=== PATIENT | female | born 1990 | race American Indian/Alaskan Native ===

== ENCOUNTER 2020-03-25 13:47 | Emergency (ER) | payer BC ==
[2020-03-25 14:15] LABS: Bilirubin,Urine NEG (Negative); Blood,Urine LG (Negative); Color,Urine Yellow (Yellow); Mucus,Urine FEW /HPF; Protein,Urine <15 mg/dL mg/dL (Negative); Urobilinogen,Urine < 2.0 mg/dL (<2.0)
[2020-03-25 14:18] LABS: RBC,Urine > 182.0 /HPF (0.0-6.0)
[2020-03-25 14:28] LABS: Basophils % (Auto) 1.1 % (0.0-1.8); Eosinophils # (Auto) 0.1 K/mm3 (0.0-0.4); Eosinophils % (Auto) 1.6 % (0.0-4.3); Hemoglobin 12.7 gm/dl (10.1-14.3); Lymphocytes # (Auto) 1.2 K/mm3 (1.2-5.4); Lymphocytes % (Auto) 30.7 % (13.4-35.0); Mean Corpuscular HGB Conc 34 % (30-34); Mean Corpuscular Volume 81 fl (79-97); Monocytes # (Auto) 0.3 K/mm3 (0.0-0.8); Monocytes % (Auto) 7.4 % (0.0-7.3); Platelet Count 251 K/mm3 (140-440); Red Blood Count 4.71 M/mm3 (3.65-5.03); Red Cell Distribution Width 15.7 % (13.2-15.2)
--- NOTE | 2020-03-25 14:34 | Event Note ---
ED Screening Note Date of service: 03/25/20 Time: 14:33 ED Screening Note: , vaginal bleeding, no care. LMP 02/17/2020 This initial assessment/diagnostic orders/clinical plan/treatment(s) is/are subject to change based on patients health status, clinical progression and re-assessment by fellow clinical providers in the ED. Further treatment and workup at subsequent clinical providers discretion. Patient/guardian urged not to elope from the ED as their condition may be serious if not clinically assessed and managed. Initial orders include: CBC, BMP, rh, HCG quant, transvaginal ultrasound
[2020-03-25 14:43] LABS: Alanine Aminotransferase 12 units/L (7-56); Albumin 4.4 g/dL (3.9-5); Blood Urea Nitrogen 7 mg/dL (7-17); Hemolysis Index 6
[2020-03-25 14:53] LABS: BUN/Creatinine Ratio 14
--- NOTE | 2020-03-25 16:54 | Ultrasound Report ---
ULTRASOUND OBSTETRIC INDICATION / CLINICAL INFORMATION: vaginal bleeding and pain. TECHNIQUE: Transabdominal-transvaginal. COMPARISON: None available. FINDINGS: Uterus: No evidence of an intrauterine . Multiple uterine fibroids are present. Endometrium measures 1 cm Adnexa: No significant abnormality except for a 3.7 cm left ovarian cyst. Free fluid: None. Additional FINDINGS: None. IMPRESSION: 1. No convincing evidence of an intrauterine or extrauterine . Recommend clinical correlatio n Signer Name: Monty Murray MD Signed: 03/25/2020 4:49 PM Workstation Name: [id number]
--- NOTE | 2020-03-25 17:28 | Emergency Department Report ---
ED Female HPI - General Chief complaint: Vaginal Bleeding Stated complaint: VAG BLEEDING Source: patient Mode of arrival: Ambulatory Limitations: No Limitations - History of Present Illness Initial comments: This is a pleasant 30-year-old female presents the emergency department chief complaint of vaginal bleeding and a positive test. Patient states her last menstrual cycle was 1017. She took a test 1 week ago and it was positive. Started having some heavier vaginal bleeding over the past 2 3 days. She reports some mild lower abdominal cramping. Denies any associated fever, chills, night sweats, headache, dizziness, blurry vision, nausea, vomit, diarrhea, chest pain, shortness of breath or any other associated symptoms. - Related Data Previous Rx's Medication Instructions Recorded Last Taken Type HYDROcodone/APAP 5-325 [Vale 1 each PO Q6HR PRN #10 tablet 12/15/15 Unknown Rx 5/325] Allergies Allergy/AdvReac Type Severity Reaction Status Date / Time No Known Allergies Allergy Unverified 12/15/15 17:10 ED Review of Systems ROS: Stated complaint: VAG BLEEDING Other details as noted in HPI Comment: All other systems reviewed and negative Constitutional: denies: chills, fever Eyes: denies: eye pain, eye discharge, vision change ENT: denies: ear pain, throat pain Respiratory: denies: cough, shortness of breath, wheezing Cardiovascular: denies: chest pain, palpitations Endocrine: no symptoms reported Gastrointestinal: abdominal pain. denies: nausea, diarrhea Genitourinary: abnormal menses. denies: urgency, dysuria, discharge Musculoskeletal: denies: back pain, joint swelling, arthralgia Skin: denies: rash, lesions Neurological: denies: headache, weakness, paresthesias Psychiatric: denies: anxiety, depression Hematological/Lymphatic: denies: easy bleeding, easy bruising ED Past Medical Hx - Past Medical History Previous Medical History?: No - Surgical History Past Surgical History?: No - Social History Smoking Status: Never Smoker Substance Use Type: None - Medications Home Medications: Home Medications Medication Instructions Recorded Confirmed Last Taken Type HYDROcodone/APAP 5-325 [Vale 1 each PO Q6HR PRN #10 tablet 12/15/15 Unknown Rx 5/325] ED Physical Exam - General Limitations: No Limitations General appearance: alert, in no apparent distress - Head Head exam: Present: atraumatic, normocephalic - Eye Eye exam: Present: normal appearance, PERRL, EOMI Pupils: Present: normal accommodation - ENT ENT exam: Present: normal exam, normal orophraynx, mucous membranes moist - Neck Neck exam: Present: normal inspection, full ROM. Absent: tenderness, meningismus - Respiratory Respiratory exam: Present: normal lung sounds bilaterally. Absent: respiratory distress, wheezes, rales, rhonchi, stridor - Cardiovascular Cardiovascular Exam: Present: regular rate, normal rhythm, normal heart sounds. Absent: systolic murmur, diastolic murmur, rubs, gallop - GI/Abdominal GI/Abdominal exam: Present: soft, normal bowel sounds. Absent: distended, tenderness, guarding, rebound, rigid - Extremities Exam Extremities exam: Present: normal inspection, full ROM, normal capillary refill. Absent: tenderness - Back Exam Back exam: Present: normal inspection, full ROM. Absent: tenderness, CVA tenderness (R), CVA tenderness (L) - Neurological Exam Neurological exam: Present: alert, oriented X3, normal gait - Psychiatric Psychiatric exam: Present: normal affect, normal mood - Skin Skin exam: Present: warm, dry, intact, normal color. Absent: rash ED Medical Decision Making - Lab Data Result diagrams: 03/25/20 14:05 03/25/20 14:05 Lab Results 03/25/20 03/25/20 03/25/20 Range/Units 14:04 14:05 14:05 WBC 4.0 L (4.5-11.0) K/mm3 RBC 4.71 (3.65-5.03) M/mm3 Hgb 12.7 (10.1-14.3) gm/dl Hct 38.0 (30.3-42.9) % MCV 81 (79-97) fl MCH 27 L (28-32) pg MCHC 34 (30-34) % RDW 15.7 H (13.2-15.2) % Plt Count 251 (140-440) K/mm3 Lymph % (Auto) 30.7 (13.4-35.0) % Mercer % (Auto) 7.4 H (0.0-7.3) % Eos % (Auto) 1.6 (0.0-4.3) % Baso % (Auto) 1.1 (0.0-1.8) % Lymph # (Auto) 1.2 (1.2-5.4) K/mm3 Mercer # (Auto) 0.3 (0.0-0.8) K/mm3 Eos # (Auto) 0.1 (0.0-0.4) K/mm3 Baso # (Auto) 0.0 (0.0-0.1) K/mm3 Seg Neutrophils % 59.2 (40.0-70.0) % Seg Neutrophils # 2.4 (1.8-7.7) K/mm3 Sodium 138 (137-145) mmol/L Potassium 3.8 (3.6-5.0) mmol/L Chloride 101.2 (98-107) mmol/L Carbon Dioxide 27 (22-30) mmol/L Anion Gap 14 mmol/L BUN 7 (7-17) mg/dL Creatinine 0.5 L (0.6-1.2) mg/dL Estimated GFR > 60 ml/min BUN/Creatinine Ratio 14 % Glucose 90 (65-100) mg/dL Calcium 9.0 (8.4-10.2) mg/dL Total Bilirubin 0.30 (0.1-1.2) mg/dL AST 11 (5-40) units/L ALT 12 (7-56) units/L Alkaline Phosphatase 82 (35-129) units/L Total Protein 7.9 (6.3-8.2) g/dL Albumin 4.4 (3.9-5) g/dL Albumin/Globulin Ratio 1.3 % HCG, Quant (0-4) mIU/mL Urine Color Yellow (Yellow) Urine Turbidity Clear (Clear) Urine pH 8.0 H (5.0-7.0) Ur Specific [place] 1.021 (1.003-1.030) Urine Protein <15 mg/dl (Negative) mg/dL Urine Glucose (UA) Neg (Negative) mg/dL Urine Ketones Neg (Negative) mg/dL Urine Blood Lg (Negative) Urine Nitrite Neg (Negative) Urine Bilirubin Neg (Negative) Urine Urobilinogen < 2.0 (<2.0) mg/dL Ur Leukocyte Esterase Tr (Negative) Urine WBC (Auto) 7.0 H (0.0-6.0) /HPF Urine RBC (Auto) > 182.0 (0.0-6.0) /HPF U Epithel Cells (Auto) 9.0 (0-13.0) /HPF Urine Mucus Few /HPF Blood Type 03/25/20 03/25/20 Range/Units 14:05 Unknown WBC (4.5-11.0) K/mm3 RBC (3.65-5.03) M/mm3 Hgb (10.1-14.3) gm/dl Hct (30.3-42.9) % MCV (79-97) fl MCH (28-32) pg MCHC (30-34) % RDW (13.2-15.2) % Plt Count (140-440) K/mm3 Lymph % (Auto) (13.4-35.0) % Mercer % (Auto) (0.0-7.3) % Eos % (Auto) (0.0-4.3) % Baso % (Auto) (0.0-1.8) % Lymph # (Auto) (1.2-5.4) K/mm3 Mercer # (Auto) (0.0-0.8) K/mm3 Eos # (Auto) (0.0-0.4) K/mm3 Baso # (Auto) (0.0-0.1) K/mm3 Seg Neutrophils % (40.0-70.0) % Seg Neutrophils # (1.8-7.7) K/mm3 Sodium (137-145) mmol/L Potassium (3.6-5.0) mmol/L Chloride (98-107) mmol/L Carbon Dioxide (22-30) mmol/L Anion Gap mmol/L BUN (7-17) mg/dL Creatinine (0.6-1.2) mg/dL Estimated GFR ml/min BUN/Creatinine Ratio % Glucose (65-100) mg/dL Calcium (8.4-10.2) mg/dL Total Bilirubin (0.1-1.2) mg/dL AST (5-40) units/L ALT (7-56) units/L Alkaline Phosphatase (35-129) units/L Total Protein (6.3-8.2) g/dL Albumin (3.9-5) g/dL Albumin/Globulin Ratio % HCG, Quant 227.5 H (0-4) mIU/mL Urine Color (Yellow) Urine Turbidity (Clear) Urine pH (5.0-7.0) Ur Specific [place] (1.003-1.030) Urine Protein (Negative) mg/dL Urine Glucose (UA) (Negative) mg/dL Urine Ketones (Negative) mg/dL Urine Blood (Negative) Urine Nitrite (Negative) Urine Bilirubin (Negative) Urine Urobilinogen (<2.0) mg/dL Ur Leukocyte Esterase (Negative) Urine WBC (Auto) (0.0-6.0) /HPF Urine RBC (Auto) (0.0-6.0) /HPF U Epithel Cells (Auto) (0-13.0) /HPF Urine Mucus /HPF Blood Type B POSITIVE - Radiology Data Radiology results: report reviewed, image reviewed Ultrasound Report Signed Patient: DANIEL MUELLER MR# : [id number] : 1990 Acct:[id number] Age/Sex: 30 / F ADM Date: 03/25/20 Loc: ED Attending Dr: Ordering Physician: KARAN MACK Date of Service: 03/25/20 Procedure(s): US OB transvaginal Accession Number(s): [id number] cc: KARAN MACK ULTRASOUND OBSTETRIC INDICATION / CLINICAL INFORMATION: vaginal bleeding and pain. TECHNIQUE: Transabdominal-transvaginal. COMPARISON: None available. FINDINGS: Uterus: No evidence of an intrauterine . Multiple uterine fibroids are present. Endometrium measures 1 cm Adnexa: No significant abnormality except for a 3.7 cm left ovarian cyst. Free fluid: None. Additional FINDINGS: None. IMPRESSION: 1. No convincing evidence of an intrauterine or extrauterine . Recommend clinical correlation Signer Name: Monty Murray MD Signed: 03/25/2020 4:49 PM Workstation Name: [id number] Transcribed By: Dictated By: Monty Murray MD Electronically Authenticated By: Monty Murray MD Signed Date/Time: 03/25/20 7270 - Medical Decision Making Patient nontoxic in no acute distress. Vital signs stable. test was a low with an hCG of 227. Ultrasound course at that level did not show anything but no signs of an ectopic. Patient is hemodynamically stable. She was educated on signs symptoms of return precautions including heavy bleeding greater than 1 pad an hour, dizziness, syncope, severe abdominal pain to return to the emerge part immediately. She was given outpatient [facility] follow-up which she has Dr. Morel and I recommend she call first thing in the morning for 72- hour follow-up. She declined pelvic exam this time. She verbalized understanding the diagnosis, treatment plan and follow-up instructions and all of her questions were answered. - Differential Diagnosis Threatened miscarriage, ectopic , complete Critical care attestation.: If time is entered above; I have spent that time in minutes in the direct care of this critically ill patient, excluding procedure time. ED Disposition Clinical Impression: Threatened miscarriage Disposition: DC- TO HOME OR SELFCARE Is pt being admited?: No Condition: Stable Instructions: Threatened Miscarriage, [id number] Referrals: PRIMARY CARE, [Primary Care Provider] - 2-3 Days [facility] [Provider Group] - 2-3 Days Forms: Work/School Release Form(ED) Time of Disposition: 17:27
== END 2020-03-25 17:41 | disposition home or self-care (01) ==
LOC: ED 13:47
DX: O20.0 Threatened abortion (principal); Z79.899 Other long term (current) drug therapy; Z3A.00 Weeks of gestation of pregnancy not specified
CPT/HCPCS: 36415; 76801; 76817; 80053; 81001; 84702; 85025; 86900; 86901

== ENCOUNTER 2020-11-01 09:57 | Outpatient (CLI) | payer BC, MEDICAID ==
[2020-11-01] MEDS ORDERED: LACTATED RINGERS 500 ML IV ONE (10:43)
[2020-11-01 10:47] VITALS: BP 126/69
[2020-11-01 11:15] LABS: Bilirubin,Urine NEG (Negative); Blood,Urine NEG (Negative); Color,Urine Yellow (Yellow); Mucus,Urine FEW /HPF; Protein,Urine <15 mg/dL mg/dL (Negative); Urobilinogen,Urine < 2.0 mg/dL (<2.0)
== END 2020-11-01 11:28 | disposition home or self-care (01) ==
LOC: TRG 09:57 → APU 10:00 → TRG 11:28
PROVIDERS: ATTEND Obstetrics & Gynecology
DX: O26.852 Spotting complicating pregnancy, second trimester (principal); O26.892 Other specified pregnancy related conditions, second trimester; R10.9 Unspecified abdominal pain; Z3A.20 20 weeks gestation of pregnancy
CPT/HCPCS: 81001

== ENCOUNTER 2021-01-10 17:27 | Outpatient (CLI) | payer BC, MEDICAID ==
[2021-01-10 18:01] VITALS: BP 128/78
[2021-01-10 18:54] LABS: Bacteria,Urine 1+ /HPF (Negative); Bilirubin,Urine NEG (Negative); Blood,Urine NEG (Negative); Color,Urine Yellow (Yellow); Mucus,Urine 3+ /HPF; Urobilinogen,Urine < 2.0 mg/dL (<2.0)
[2021-01-10] MEDS ORDERED: LACTATED RINGERS 1,000 ML IV ONE (19:41)
[2021-01-10 19:58] LABS: Basophils # (Auto) 0.2 K/mm3 (0.0-0.1); Basophils % (Auto) 2.9 % (0.0-1.8); Eosinophils # (Auto) 0.1 K/mm3 (0.0-0.4); Eosinophils % (Auto) 1.9 % (0.0-4.3); Hematocrit 35.1 % (30.3-42.9); Hemoglobin 12.2 gm/dl (10.1-14.3); Lymphocytes # (Auto) 0.7 K/mm3 (1.2-5.4); Mean Corpuscular HGB Conc 35 % (30-34); Mean Corpuscular Volume 90 fl (79-97); Monocytes # (Auto) 0.4 K/mm3 (0.0-0.8); Monocytes % (Auto) 5.7 % (0.0-7.3); Platelet Count 221 K/mm3 (140-440); Red Blood Count 3.92 M/mm3 (3.65-5.03); Red Cell Distribution Width 13.5 % (13.2-15.2)
[2021-01-10 20:13] LABS: Alanine Aminotransferase 20 units/L (7-56); Albumin 3.6 g/dL (3.9-5); Blood Urea Nitrogen 9 mg/dL (7-17); Calcium 8.9 mg/dL (8.4-10.2); Hemolysis Index 15
[2021-01-10 20:19] LABS: BUN/Creatinine Ratio 23
== END 2021-01-10 20:50 | disposition home or self-care (01) ==
LOC: TRG 17:27 → APU 17:31 → TRG 20:50
PROVIDERS: ATTEND Obstetrics & Gynecology
DX: Z34.93 Encounter for supervision of normal pregnancy, unspecified, third trimester (principal); Z3A.30 30 weeks gestation of pregnancy
CPT/HCPCS: 36415; 59025; 80053; 81001; 85025

== ENCOUNTER 2021-01-28 17:23 | Outpatient (CLI) | payer BC, MEDICAID ==
[2021-01-28] MEDS ORDERED: LACTATED RINGERS 1,000 ML IV ONE (18:44)
[2021-01-28 19:35] VITALS: BP 104/61
[2021-01-28] MEDS ORDERED: TERBUTALINE 1 MG/1 ML INJ SUB-Q ONE (20:00)
== END 2021-01-28 20:24 | disposition home or self-care (01) ==
LOC: TRG 17:23 → APU 17:25 → TRG 20:24
PROVIDERS: ATTEND Obstetrics & Gynecology
DX: O26.893 Other specified pregnancy related conditions, third trimester (principal); R42 Dizziness and giddiness; R51.9 Headache, unspecified; Z3A.33 33 weeks gestation of pregnancy
CPT/HCPCS: 59025; 96360; 96361; 96372; J3105; J7120

== ENCOUNTER 2021-02-15 13:38 | Outpatient (CLI) | payer BC, MEDICAID ==
[2021-02-15] MEDS ORDERED: LACTATED RINGERS 1,000 ML IV ONE (14:22)
[2021-02-15] MEDS ORDERED: ONDANSETRON 4 MG/2 ML INJ IV ONE (14:24)
[2021-02-15 15:16] LABS: Bacteria,Urine 1+ /HPF (Negative); Bilirubin,Urine NEG (Negative); Blood,Urine NEG (Negative); Color,Urine Yellow (Yellow); Mucus,Urine 1+ /HPF; Urobilinogen,Urine < 2.0 mg/dL (<2.0)
[2021-02-15] MEDS ORDERED: TERBUTALINE 1 MG/1 ML INJ SUB-Q ONE (16:45)
[2021-02-15 16:50] VITALS: BP 108/56
== END 2021-02-15 17:19 | disposition home or self-care (01) ==
LOC: TRG 13:38 → APU 13:39 → TRG 17:19
PROVIDERS: ATTEND Obstetrics & Gynecology
DX: O21.2 Late vomiting of pregnancy (principal); R42 Dizziness and giddiness; R51.9 Headache, unspecified; Z3A.36 36 weeks gestation of pregnancy
CPT/HCPCS: 59025; 81001; 96361; 96365; 96372; J2405; J3105; J7120; 96360; 96374

== ENCOUNTER 2021-03-09 10:30 | Inpatient (IN) | payer BC, MEDICAID ==
--- NOTE | 2021-03-09 12:13 | History and Physical Report ---
History of Present Illness Date of examination: 03/09/21 Date of admission: 03/09/21 Chief complaint: Previous c-sections with c/o SROM History of present illness: Pt presents c/o SROM. Pt noted to have negative swab but clinical signs of SROM with fluid coming from perineum as per triage nurse. When pt was examiend by myself I did note moisture on the perineum but no gush of fluid. However, she is having regular painful contractions w/o cervical dilation. Pt states this ahs been since she saw the fliuid come out at 7am. I d/w risk, benefits and alternatives for repeat c/s and she agrees to repeat c/s. Consents signed and placed on the chart. EDC Confirmation: 03/19/2021 Gestational Age: 38 4/7 weeks Past History : 3 Term Births: 1 Premature Births: 0 Living Children: 1 Para: 1 Mult. Births: 0 Prev : 1 Aborta: 1 Elect. Ab: 0 Spont. Ab: 1 Ectopics: 0 # 1 Delivery date: 2016 Weeks Gestation: 40 Delivery type: Delivery location: [facility] Infant Sex: Male weight: 9 Comments: SROM delivered Wednesday night, IOL for prelabor ROM, got to complete and pushed but thinks her cervix swelled; CSection # 2 Delivery date: 04/2020 Delivery type: SAB Comments: denies complications, procedures, and medications Past Medical History: Negative Past Medical History Past Surgical History: Reviewed and updated today: Hernia Repair as baby Family History Summary: Reviewed history and no changes required: 11/07/2020 General Comments - FH: DM HTN Heart dz Social History: Reviewed history from 04/03/2020 and no changes required: 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 Risk Factors: Smoked Tobacco Use: Never smoker Smokeless Tobacco Use: Never Counseled to Quit/Cut Down: yes Passive Smoke Exposure: no HIV High Risk Behavior: no 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 Dietary Counseling Reason: pn yes Past Medical History Anesthesia Complications: negative Anemia: negative Autoimmune Disorder: negative Bleeding Disorder: negative Blood Transfusions: negative Breast Disease: negative Diabetes: negative Heart Disease: negative Hypertension: negative Hepatitis/Liver Disease: negative Kidney Disease/UTI: negative Neurologic/Epilepsy/Migraines: negative Phlebitis/Varicosities: negative Psychiatric: negative Pulmonary Disease/Asthma: negative Thyroid Disease: negative Hospitalizations: negative Surgery (Non-detail technician): Hernia Repair as baby Abnormal PAP: negative WENDY Exposure: negative Infertility: negative Uterine Anomaly: negative Uterine Surgery (not C/S): negative Other Gynecologic Problems: negative 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 of genital herpes: no Partner hx. of genital herpes: no Rash, Viral, or Febrile illness since last LMP? no Varicella/Chicken Pox Status: Previous Disease TB Risk: no Genetic History Congenital Heart Defect: Mom: no Dad: no Nely Disease: Mom: no Dad: no Thalassemia Mom: no Dad: no Neural Tube Defect Mom: no Dad: no Down's Syndrome Mom: no Dad: no Ayush-Sachs Mom: no Dad: no Sickle Cell Disease/Trait Mom: no Dad: no Hemophilia Mom: no Dad: no Muscular Dystrophy Mom: no Dad: no Cystic Fibrosis Mom: no Dad: no Zohra Chorea Mom: no Dad: no Mental Retardation Mom: no Dad: no Fragile X Mom: no Dad: no Other Genetic/Chromosomal Disorder Mom: no Dad: no Child w/other defect Mom: no Dad: no Enviromental Exposures Enviromental Exposures Reviewed Xray Exposure: no Medication, drug, or alcohol use since LMP: no Chemical/Other Exposure: no Exposure to Cat Liter: no Hx of Parvovirus (Fifth Disease): no Occupational Exposure to Children: none Active Medications (reviewed today): None Current Allergies (reviewed today): No known allergies Past History - Obstetrical History Expected Date of Delivery: 03/19/21 Actual Gestation: 38 Week(s) 4 Day(s) : 3 Medications and Allergies Allergies Allergy/AdvReac Type Severity Reaction Status Date / Time No Known Allergies Allergy Verified 02/15/21 14:07 Home Medications Medication Instructions Recorded Confirmed Last Taken Type Ondansetron [Zofran ODT TAB] 4 mg PO Q8HR PRN #15 tab.rapdis 02/15/21 Unknown Rx Vitamin 1 tab PO DAILY 02/15/21 02/15/21 02/15/21 10:00 History - Vital Signs Vital signs: Vital Signs Pulse Pulse Ox 91 H 99 03/09/21 11:20 11/07/21 11:20 Temp Pulse Resp BP Pulse Ox 98.5 F 83 18 116/74 99 03/09/21 11:30 03/09/21 12:05 03/09/21 11:30 03/09/21 11:30 03/09/21 12:05 Results All other labs normal. Assessment and Plan - Patient Problems (1) SROM (spontaneous rupture of membranes) Current Visit: Yes Status: Acute (2) Maternal care due to low transverse uterine scar from previous delivery Current Visit: No Status: Acute Plan to address problem: -admit -prepare for repeat c/s -consent signed and placed on the chart.
[2021-03-09] MEDS ORDERED: PROMETHAZINE 25 MG RECT SUPP PR PRN (12:15)
[2021-03-09] MEDS ORDERED: HYDROmorphone 1 MG/1 ML INJ IV PRN (12:15)
[2021-03-09] MEDS ORDERED: NALOXONE 0.4 MG/1 ML INJ IV PRN ×2 (12:15→14:46)
[2021-03-09] MEDS ORDERED: ONDANSETRON 4 MG/2 ML INJ IV PRN ×2 (12:15→12:59)
[2021-03-09] MEDS ORDERED: FAMOTIDINE 20 MG/2 ML INJ IV ONE (12:15)
[2021-03-09] MEDS ORDERED: diphenhydrAMINE 50 MG/ML VIAL IV PRN (12:15)
[2021-03-09] MEDS ORDERED: PROMETHAZINE 25 MG TAB PO PRN (12:15)
[2021-03-09] MEDS ORDERED: NalbUPHINE 10 MG/1 ML INJ IV PRN (12:15)
[2021-03-09] MEDS ORDERED: ONDANSETRON 4 MG/2 ML INJ ONE (12:27)
[2021-03-09] MEDS ORDERED: KETOROLAC 30 MG/1 ML INJ ONE (12:27)
[2021-03-09] MEDS ORDERED: dexAMETHasone 20 MG/5 ML VIAL ONE (12:27)
[2021-03-09] MEDS ORDERED: BUPIVACAINE/PF (0.5%) 5 MG/1 ML 30 ML VIAL INFILTRATI ONE (12:27)
--- NOTE | 2021-03-09 12:44 | Anesthesia Day of Surgery ---
Anesthesia Day of Surgery - Day of Surgery Patient Examined: Yes Patient H&P Reviewed: Yes Patient is NPO: Yes Beta Blockers: No Cardiac Clearance: No Pulmonary Clearance: No Dale's Test: N/A
--- NOTE | 2021-03-09 12:45 | Anesthesia Consultation ---
Anesthesia Consult and Med Hx Date of service: 03/09/21 - Airway Anesthetic Teeth Evaluation: Good ROM Head & Neck: Adequate Mental/Hyoid Distance: Adequate Mallampati Class: Class II Intubation Access Assessment: Probably Good - Pulmonary Exam CTA: Yes - Cardiac Exam Cardiac Exam: RRR - Pre-Operative Health Status ASA Pre-Surgery Classification: ASA2 Proposed Anesthetic Plan: Spinal Nerve Block: TAP - Pulmonary Hx Smoking: No Hx Asthma: No COPD: No Hx Pneumonia: No Hx Sleep Apnea: No - Cardiovascular System Hx Hypertension: No Hx Heart Attack/AMI: No Hx Angina: No - Central Nervous System Hx Seizures: No Hx Psychiatric Problems: No - Gastrointestinal Hx Gastroesophageal Reflux Disease: No - Endocrine Hx Renal Disease: No Hx End Stage Renal Disease: No Hx Liver Disease: No Hx Insulin Dependent Diabetes: No Hx Non-Insulin Dependent Diabetes: No Hx Hypothyroidism: No Hx Hyperthyroidism: No - Hematic Hx Anemia: No Hx Sickle Cell Disease: No - Other Systems Hx Alcohol Use: No - Additional Comments Anesthesia Medical History Comments: "spinal got high with last c/s"
[2021-03-09] MEDS ORDERED: LACTATED RINGERS 1,000 ML ONE ×3 (12:47→14:31)
[2021-03-09 12:52] LABS: Basophils % (Auto) 0.3 % (0.0-1.8); Eosinophils # (Auto) 0.1 K/mm3 (0.0-0.4); Eosinophils % (Auto) 2.4 % (0.0-4.3); Hematocrit 38.7 % (30.3-42.9); Hemoglobin 13.3 gm/dl (10.1-14.3); Lymphocytes % (Auto) 17.8 % (13.4-35.0); Mean Corpuscular HGB Conc 34 % (30-34); Mean Corpuscular Volume 88 fl (79-97); Monocytes # (Auto) 0.3 K/mm3 (0.0-0.8); Monocytes % (Auto) 5.4 % (0.0-7.3); Platelet Count 178 K/mm3 (140-440); Red Blood Count 4.39 M/mm3 (3.65-5.03); Red Cell Distribution Width 13.3 % (13.2-15.2)
[2021-03-09] MEDS ORDERED: ePHEDrine SULFATE 50 MG/1 ML INJ ONE (12:52)
[2021-03-09] MEDS ORDERED: BICITRA ORAL LIQD 30ML ONE (12:56)
[2021-03-09] MEDS ORDERED: METOCLOPRAMIDE 10 MG/2 ML INJ ONE (12:57)
[2021-03-09] MEDS ORDERED: ACETAMINOPHEN 325 MG TAB PO PRN (12:59)
[2021-03-09] MEDS ORDERED: MORPHINE 2 MG/1 ML INJ IV PRN (12:59)
[2021-03-09] MEDS ORDERED: ceFAZolin/Water 2 GM/20 ML 2 GM/20 ML SYRINGE IV NR (13:00)
[2021-03-09] MEDS ORDERED: OXYTOCIN DRIP 30 UNITS/500 ML BAG IV SCH (13:00)
[2021-03-09] MEDS ORDERED: ceFAZolin/STERILE WATER 2 GM/20 ML SYRINGE IV ONE (13:25)
[2021-03-09] MEDS ORDERED: ESMOLOL 100 MG/10 ML INJ IV ONE (13:42)
--- NOTE | 2021-03-09 13:51 | Progress Note ---
Spinal Anesthesia Block - Spinal Anesthesia Block Start Time: 13:29 Stop Time: 13:35 Performed by:: CLAY MASON (Jennifer CACERES) Procedure: Spinal anesthesia block is being performed for [C/S]. H&P, labs have been reviewed. Patient's questions and concerns have been answered. Informed consent has been performed. Timeout has was performed. Patient in sitting position on side of bed. Sterile prep and drape was performed. 3 mL 1% lidoc stella skin wheal at L [3]-L [4]. Needle introducer advanced. 25-gauge spinal needle advanced, [+] CSF [-] blood. [Marcaine 10mg and Precedex 5mcg] Spinal dose was given. All needles removed. Patient tolerated procedure well.
[2021-03-09] MEDS ORDERED: PHENYLEPHRINE/NS 1,000 MCG/10 ML SYRINGE (OR USE) IV ONE (14:30)
--- NOTE | 2021-03-09 14:45 | Operative Report ---
Operative Report Operative Report: Date of procedure: 03/09/2021 Pre-operative diagnosis: 38 weeks gestation Previous section Painful uterine contractions Suspected leakage of amniotic fluid Post-operative diagnosis: Same Procedure name(s): Repeat low transverse section via Pfannenstiel skin incision Surgeon: Dr. Mann Cat Driver: LILLY Anesthesia: Spinal QBL: 809 mL Urine output: 200 mL of clear urine out at end of procedure Fluids: 1900 mL Findings: Liveborn female weight 7 pounds 0 ounces Apgars of 8 and 9 at 1 and 5 minutes Grossly normal fallopian tubes and ovaries bilaterally Nuchal cord x1 easily reduced True knot in umbilical cord x1 Indications: Patient presented to triage with complaints of leakage of amniotic fluid. Via triage nurse exam patient appeared to have rupture of membranes. Swab collected was negative for rupture of membranes however patient will was noted to have repetitive painful contractions. Decision was made at this time to proceed with delivery. All risk benefits and alternatives were discussed with the patient. Consents were signed and placed on the chart. Procedure: Patient was taking to the operating room. Patient was then prepped and draped in sterile fashion after anesthesia was found to be adequate. A low transverse skin incision was made with the scalpel through previous incisional scar and carried down to the underlying layer of fascia with the Bovie. The fascia was then incised in the midline and this incision was extended bila terally with the Bovie. The superior aspect of the fascia was grasped with Gonzalez clamps tented upward and dissected off of the anterior rectus muscles with the scalpel. In similar fashion the inferior aspect of the fascia was grasped with Gonzalez clamps tented upward and dissected off of the anterior rectus muscles. The rectus muscles were then bluntly divided in the midline. The peritoneum was identified and entered into sharply. The Manolo retractor was placed. The bladder blade was placed. A lower transverse uterine incision was made with the scalpel and extended bilaterally with blunt dissection. Artificial rupture of membranes was performed yielding [clear amniotic fluid]. The infant's head was then delivered atraumatically. The anterior shoulder and rest of delivered without difficulty. The umbilical cord was clamped x2. The cord was cut. The was then placed in sterile bassinet. Cord blood was not collected.. The placenta was manually extracted in its entirety. The uterus was exteriorized and cleared of all clots and debris. The uterine incision was closed using 0 Vicryl in a running locking fashion. Several [id number] sutures were used along incision lines to secure excellent hemostasis. The posterior cul-de-sac was copiously irrigated. The uterus was returned to the abdomen. Surgicel powder was placed over the uterine incision with excellent hemostasis noted . the gutters were also irrigated. The anterior rectus muscles were reapproximated using 3-0 Vicryl. The anterior rectus fascia was reapproximated using 0 Vicryl in a running fashion. The subcuticular fat was reapproximated using 2-0 Vicryl in a running fashion. The skin was reapproximated with 4-0 Monocryl in a subcuticular stitch. The patient tolerated the procedure well. Sponge lap and needle counts were all correct x3. Patient was taken to the recovery room awake and in stable condition.
[2021-03-09] MEDS ORDERED: WITCH HAZEL/ GLYCERIN PAD TP PRN (14:46)
[2021-03-09] MEDS ORDERED: LANOLIN/ZINC/DIMETHICONE (LANSINOH) 7 GM TP PRN (14:46)
[2021-03-09] MEDS ORDERED: KETOROLAC 30 MG/1 ML INJ IV PRN (14:46)
[2021-03-09] MEDS ORDERED: HYDROcodone/ACETAMINOPHEN 5-325 MG TAB PO PRN (14:46)
[2021-03-09] MEDS ORDERED: D5W/LACTATED RINGERS 1,000 ML IV SCH (15:00)
[2021-03-09] MEDS: KETOROLAC 30 MG/1 ML INJ IV PRN (22:28)
[2021-03-09] MEDS: ceFAZolin/NS 1 GM/50 ML 1 GM/50 ML BAG IV SCH (22:29)
[2021-03-10 04:01] LABS: Hemoglobin 11.4 gm/dl (10.1-14.3)
[2021-03-10] MEDS: KETOROLAC 30 MG/1 ML INJ IV PRN ×2 (04:56→13:00)
[2021-03-10] MEDS: ceFAZolin/NS 1 GM/50 ML 1 GM/50 ML BAG IV SCH (05:10)
[2021-03-10] MEDS: SIMETHICONE 80 MG CHEW TAB PO PRN (07:43)
--- NOTE | 2021-03-10 08:32 | Progress Note ---
Assessment and Plan VSSAF, postop H&H stable. POC reviewed with pt. Questions encouraged and answered. Pt verbalizes understanding and agrees to POC. Gas medications and ambulation encouraged. - Patient Problems (1) delivery delivered Current Visit: Yes Status: Acute Plan to address problem: continue postop pathway Subjective - Subjective Date of service: 03/10/21 Principal diagnosis: POD #1 Patient reports: appetite normal, voiding normally, pain well controlled, flatus, ambulating normally : doing well, nursing well, bottle feeding Objective - Vital Signs Latest vital signs: Vital Signs Temp Pulse Resp BP BP Pulse Ox Pulse Ox 03/10/21 08:26 98.7 F 70 120/99 03/10/21 07:54 98 03/10/21 04:56 12 03/10/21 04:00 98.6 F 68 18 113/79 03/10/21 00:00 98.7 F 78 18 105/79 03/09/21 22:28 12 03/09/21 20:00 98 03/09/21 19:51 98.0 F 79 18 116/74 98 03/09/21 16:25 99 03/09/21 15:45 97.6 F 75 19 110/68 97 03/09/21 15:30 78 19 109/64 97 03/09/21 15:15 80 21 123/77 100 03/09/21 15:00 76 16 110/72 100 03/09/21 14:55 75 24 98/51 100 03/09/21 14:50 75 22 102/57 100 03/09/21 14:47 97.5 F L 81 15 103/63 100 03/09/21 12:25 86 100 03/09/21 12:20 109 H 99 03/09/21 12:17 97 H 94 03/09/21 12:15 89 99 03/09/21 12:10 92 H 100 03/09/21 12:05 83 99 03/09/21 12:00 101 H 99 03/09/21 11:55 101 H 98 03/09/21 11:50 96 H 98 03/09/21 11:45 103 H 99 03/09/21 11:40 100 H 98 03/09/21 11:38 98 03/09/21 11:35 110 H 99 03/09/21 11:30 98.5 F 104 H 18 116/74 116/74 98 03/09/21 11:25 107 H 97 03/09/21 11:20 91 H 99 Intake and Output 03/09/21 03/10/21 03/10/21 23:59 07:59 15:59 Intake Total 450 600 Output Total 950 1500 Balance -500 -900 Intake: IV 250 ANCEF/NS 1 GM/50 ML 1 gm 50 In 50 ml @ 100 mls/hr IV Q8H [facility] Rx#:[id number] Oral 200 600 Output: Urine 950 1500 Indwelling Catheter 800 900 Void 600 Other: Total, Intake Amount 200 200 Total, Output Amount 800 600 # Voids Void 1 - Exam Breasts: Present: normal Cardiovascular: Present: Regular rate Lungs: Present: Normal air movement Abdomen: Present: distention Uterus: Present: normal, firm Extremities: Present: normal Incision: Present: normal, dry, intact, dressed - Labs Labs: Abnormal lab results 03/09/21 Range/Units 12:30 Lymph # (Auto) 1.0 L (1.2-5.4) K/mm3 Seg Neutrophils % 74.1 H (40.0-70.0) %
--- NOTE | 2021-03-10 09:30 | Post Anesthesia Evaluation ---
- Post Anesthesia Evaluation Patient Participated: Yes Airway Patent: Yes Stable Respiratory Function: Yes Nausea/Vomiting: No Temp > 96.8F: Yes Pain Manageable: Yes Adequeate Hydration: Yes Anesthesia Complications: No Block Receding Appropriately: Yes Patient on Ventilator: No
[2021-03-10] MEDS ORDERED: HYDROcodone/ACETAMINOPHEN 5-325 MG TAB ONE (13:56)
[2021-03-10] MEDS: HYDROcodone/ACETAMINOPHEN 5-325 MG TAB PO PRN ×2 (14:08→18:09)
[2021-03-10] MEDS: PRENATAL VIT27-FE FUMARATE-FOLIC ACID VIT TAB PO SCH (14:10)
[2021-03-10] MEDS ORDERED: TETANUS,DIPH,PERTUSS(ACELL) VACCINE 0.5 ML SYRINGE IM ONE (14:51)
[2021-03-11] MEDS: HYDROcodone/ACETAMINOPHEN 5-325 MG TAB PO PRN (01:29)
[2021-03-11] MEDS ORDERED: IBUPROFEN 800 MG TAB PO SCH (08:00)
--- NOTE | 2021-03-11 08:42 | Discharge Summary ---
Providers - Providers Date of Admission: 03/09/21 12:40 Date of discharge: 03/11/21 (pt desires discharge home today) Attending physician: ALLYSON LIVINGSTON Primary care physician: ALLYSON LIVINGSTON Hospitalization Reason for admission: rupture of membranes, IUP at term Delivery: Procedure: section, repeat low transverse Episiotomy: none Laceration: none Incision: normal, dry, intact, dressed (RN to remove before discharge home, after pt showers this am) Other procedures: none complications: none Discharge diagnosis: IUP at term delivered [place] baby: female Condition at discharge: Good Disposition: 01 HOME / SELF CARE / HOMELESS - Discharge Diagnoses (1) delivery delivered Status: Acute Plan - Discharge Medications Prescriptions: Docusate Sodium [Colace] 100 mg PO BID PRN #60 capsule PRN Reason: Constipation Ibuprofen [Motrin 800 MG tab] 800 mg PO Q8HR PRN #30 tablet PRN Reason: Pain, Moderate (4-6) oxyCODONE /ACETAMINOPHEN [Percocet 5/325] 1 tab PO Q4HR #30 tab - Provider Discharge Summary Activity: routine, no sex for 6 weeks, no heavy lifting 4 weeks, no strenuous exercise Diet: routine Instructions: routine Additional instructions: [] Smoking cessation referral if applicable(refer to patient education folder for contact #) [] Refer to [facility]'s [facility] Booklet Call your doctor immediately for: * Fever > 100.5 * Heavy vaginal bleeding ( >1 pad per hour) * Severe persistent headache * Shortness of breath * Reddened, hot, painful area to leg or breast * Drainage or odor from incision. * Keep incision clean and dry at all times and follow doctor's instructions regarding bathing/showering Congratulations! Please call [phone] and schedule your incision check in 1 week. Thank you! - Follow up plan Follow up: ALLYSON LIVINGSTON MD [Primary Care Provider] - 7 Days
[2021-03-11] MEDS: SIMETHICONE 80 MG CHEW TAB PO PRN (10:09)
[2021-03-11] MEDS: PRENATAL VIT27-FE FUMARATE-FOLIC ACID VIT TAB PO SCH (10:09)
[2021-03-11 18:55] VITALS: BP 127/83
== END 2021-03-11 15:00 | disposition home or self-care (01) | DRG 788 ==
LOC: TRG 10:30 → APU 10:32 → TRG 12:39 → APU 12:40 → OB 16:37
PROVIDERS: ADMIT Obstetrics & Gynecology; ATTEND Obstetrics & Gynecology
PROC: 10D00Z1 Extraction of Products of Conception, Low, Open Approach (ICD-10-PCS; principal; 2021-03-09)
PROC: 3E0234Z Introduction of Serum, Toxoid and Vaccine into Muscle, Percutaneous Approach (ICD-10-PCS; 2021-03-10)
DX: O34.211 Maternal care for low transverse scar from previous cesarean delivery (principal); O62.4 Hypertonic, incoordinate, and prolonged uterine contractions; O42.92 Full-term premature rupture of membranes, unspecified as to length of time between rupture and onset of labor; O69.81X0 Labor and delivery complicated by cord around neck, without compression, not applicable or unspecified; Z3A.38 38 weeks gestation of pregnancy; Z37.0 Single live birth; Z23 Encounter for immunization
CPT/HCPCS: 36415; 59025; 84112; 85014; 85018; 85025; 86850; 86900; 86901; G0378; J0690; J1100; J1885; J2370; J2405; J2590; J2765; J3490; J7120; J7121; U0003